=== PATIENT | male | born 1930 | race Hispanic/Latino ===

== ENCOUNTER 2019-02-06 06:00 | Day surgery (SDC) | payer MEDICARE ==
[~2019-02-06] VITALS: Ht 167.6 cm; Wt 90.7 kg
[2019-02-06] VITALS (7 sets, daily range): BP systolic 91–194; BP diastolic 36–147
[~2019-02-06 06:00] MED LIST: ASPI-555 PO; ESOM40CA54 PO; FENO54TA6 PO; ICOS1CAP PO; RANO500T2 PO; SACU1TAB PO; SODIUM CHLORIDE 0.9% 1000ML 1,000 ML IV ONE; SUCR1TAB2 PO; VITA1CAP PO
[2019-02-06 07:02] LABS: BASOPHILS % (AUTO) 0.5 % (0.0-5.0); EOSINOPHILS % (AUTO) 1.7 % (0.0-8.0); LYMPHOCYTES % (AUTO) 33.5 % (21.0-51.0); MEAN CORPUSCULAR HEMOGLOBIN 31.5 pg (27.0-33.0); MEAN CORPUSCULAR HGB CONC 34.1 g/dL (32.0-36.0); MEAN CORPUSCULAR VOLUME 92.5 fL (79-99); MONOCYTES % (AUTO) 6.2 % (3.0-13.0); NEUTROPHILS % (AUTO) 58.1 % (40.0-77.0); PLATELET COUNT (AUTO) 195 K/uL (130-400); RED BLOOD CELL COUNT(AUTO) 4.98 MIL/uL (4.50-6.20); RED CELL DISTRIBUTION WIDTH 13.4 % (11.0-15.5); WHITE BLOOD COUNT (AUTO) 5.5 K/uL (4.8-10.8)
[2019-02-06 07:09] LABS: INR 1.07 (0.85-1.15); PROTHROMBIN TIME 11.2 SEC (9.6-11.6)
--- NOTE | 2019-02-06 07:35 | NUR ---
NURSING REGARDING CLEARANCE AND ORDER TO STOP PLAVIX FOR 5 DAYS. PT HAS BEEN OFF PLAVIX SINCE SEPTEMBER. DR VASQUEZ AWARE AND STATES ITS FINE Addendum: 02/06/19 at 0736 by SHAKIRA SANDOVAL RN Amended: Links added.
[2019-02-06] MEDS ORDERED: PROPOFOL 10 MG/ML 20ML VIAL IV ONE (08:14)
[2019-02-06] MEDS ORDERED: LIDOCAINE HCL 1% 20 ML VIAL ONE (08:21)
== END 2019-02-06 09:05 | disposition home or self-care (01) ==
LOC: DAH 06:00 → ENDO 06:00
PROVIDERS: ATTEND Internal Medicine
DX: K29.50 Unspecified chronic gastritis without bleeding (principal); D13.1 Benign neoplasm of stomach; I10 Essential (primary) hypertension; K76.0 Fatty (change of) liver, not elsewhere classified; E78.5 Hyperlipidemia, unspecified; Z98.890 Other specified postprocedural states; Z79.899 Other long term (current) drug therapy
CPT/HCPCS: 36415; 43237; 43239; 43251; 85025; 85610; 88305; 93005; A4215; A4221; A4222; A4223; A4606; A4615; A4663; J2704; J7030